=== PATIENT | female | born 1980 | race African-American/Black ===

== ENCOUNTER 2018-07-31 09:54 | Day surgery (SDC) | payer MEDICAID, OTHER ==
[~2018-07-31 09:54] MED LIST: 0.9 % SODIUM CHLORIDE PF 10 ML VIAL IJ ONE; KETAMINE HCL 10 MG/ML ML IJ ONE; LACTATED RINGERS 1,000 ML IV.SOLN IV ONE; LIDOCAINE HCL 1%/EPI. (1:100,000) MDV 20ML VIAL IJ ONE; MIDAZOLAM HCL 2 MG/2 ML VIAL ONE; ceFAZolin SODIUM 1 GM VIAL ONE; fentaNYL CITRATE/PF 100 MCG/2 ML INJ. ONE
[2018-07-31] MEDS ORDERED: LACTATED RINGERS 1,000 ML IV ONE (10:04)
[2018-07-31] MEDS ORDERED: PREGNANCY TEST KIT 1 EACH KIT MC ONE (10:13)
[2018-07-31] MEDS ORDERED: fentaNYL CITRATE/PF 100 MCG/2 ML INJ. ONE ×2 (12:50→13:05)
[2018-07-31] MEDS ORDERED: oxyCODONE/ACETAMINOPHEN 5/325 TABLET PO ONE (13:48)
== END 2018-07-31 14:25 | disposition home or self-care (01) ==
LOC: OPSURG 09:54
PROVIDERS: ATTEND Physical Medicine & Rehabilitation
DX: M54.5 Low back pain (principal); M79.604 Pain in right leg; M79.605 Pain in left leg
CPT/HCPCS: 63650; A9270; J0690; J1815; J2250; J3010; J7120

== ENCOUNTER 2018-09-11 09:16 | Day surgery (SDC) | payer MEDICAID, OTHER ==
[~2018-09-11 09:16] MED LIST changes: -0.9 % SODIUM CHLORIDE PF 10 ML VIAL IJ ONE; +HYDROcodone /APAP 5/325 1 EACH TABLET ONE; -KETAMINE HCL 10 MG/ML ML IJ ONE; +LIDOCAINE HCL 1% PF 300MG/30ML VIAL ONE; -LIDOCAINE HCL 1%/EPI. (1:100,000) MDV 20ML VIAL IJ ONE; +ONDANSETRON HCL/PF 4 MG/ 2ML VIAL ONE; +PROPOFOL 200 MG/20 ML VIAL IV ONE
[2018-09-11] MEDS ORDERED: fentaNYL CITRATE/PF 100 MCG/2 ML INJ. ONE ×2 (12:32→12:51)
[2018-09-11] MEDS ORDERED: ONDANSETRON HCL/PF 4 MG/ 2ML VIAL ONE (13:01)
[2018-09-11] MEDS ORDERED: HYDROcodone /APAP 5/325 1 EACH TABLET ONE (13:07)
== END 2018-09-11 14:30 | disposition home or self-care (01) ==
LOC: OPSURG 09:16
PROVIDERS: ATTEND Physical Medicine & Rehabilitation
DX: M54.5 Low back pain (principal); M79.605 Pain in left leg; M79.604 Pain in right leg
CPT/HCPCS: 63650; A9270; J0690; J2001; J2250; J2405; J2704; J3010; J7120

== ENCOUNTER 2018-11-14 09:38 | Day surgery (SDC) | payer MEDICAID, OTHER ==
[~2018-11-14 09:38] MED LIST changes: +DESFLURANE 240 ML LIQUID IH ONE; +DEXAMETHASONE SODIUM PHOSPHATE 10 MG/ML VIAL ONE; -HYDROcodone /APAP 5/325 1 EACH TABLET ONE; +HYDROmorphone HCL/PF 1 MG/ML VIAL ONE; -LIDOCAINE HCL 1% PF 300MG/30ML VIAL ONE; +LIDOCAINE HCL 2% PF 100MG/5ML VIAL IJ ONE; -MIDAZOLAM HCL 2 MG/2 ML VIAL ONE; +ROCURONIUM BROMIDE 10 MG/ML 5ML VIAL ONE; +SUCCINYLCHOLINE CHLORIDE 200 MG/10 ML VIAL ONE; +SUGAMMADEX SODIUM 200 MG/2 ML VIAL IV ONE
[2018-11-14] MEDS ORDERED: oxyCODONE/ACETAMINOPHEN 5/325 TABLET PO ONE (14:19)
== END 2018-11-14 14:20 ==
LOC: OPSURG 09:38
PROVIDERS: ATTEND Physical Medicine & Rehabilitation
DX: M54.5 Low back pain (principal); M79.604 Pain in right leg; M79.605 Pain in left leg
CPT/HCPCS: 63650; 63685; J0330; J0690; J1170; J2001; J2405; J2704; J3010; A9270-GY; J7120